=== PATIENT | female | born 1980 | race African-American/Black ===

== ENCOUNTER 2020-04-15 06:01 | Emergency (ER) | payer MEDICAID ==
[~2020-04-15] VITALS: Ht 165.1 cm; Wt 68.0 kg
--- NOTE | 2020-04-15 06:14 | NUR ---
PT CAME TO THE ER C/O GENERALIZED ITCHING AND RASH SINCE TUESDAY BUT WORSE TODAY. DENIES SOB.PT AAOX4, RESPIRATIONS EVEN AND UNLABORED ON RA W/ NAD NOTED. PT CONNECTED TO THE PRESSER MACHINE AND POX.
--- NOTE | 2020-04-15 06:15 | NUR ---
DR HULL AT BEDSIDE FOR EVAL
[2020-04-15] MEDS ORDERED: diphenhydrAMINE HCL 50 MG/ML VIAL ONE (06:25)
[2020-04-15] MEDS ORDERED: FAMOTIDINE/PF INJ 20 MG/2 ML VIAL IV ONE ×2 (06:26→06:30)
[2020-04-15] MEDS ORDERED: predniSONE 20 MG TABLET ONE (06:26)
[2020-04-15] MEDS ORDERED: IV NS 0.9% 1,000 ML BAG IV ONE (06:30)
[2020-04-15] MEDS ORDERED: diphenhydrAMINE HCL 50 MG/ML VIAL IV ONE (06:30)
[2020-04-15] MEDS ORDERED: predniSONE 10 MG TABLET PO ONE (06:30)
--- NOTE | 2020-04-15 07:10 | NUR ---
RECEIVED REPORT FROM HANSEL ECKERT FOR ROBER, PT IS AAOX4, NOT IN RESPIRATORY DISTRESS, V/S STABLE, KEPT RESTED AND COMFORTABLE, AWAITING LAB RESULTS.
[2020-04-15 07:42] LABS: BASOPHILS % (AUTO) 0.3 % (0.0-2.0); EOSINOPHILS % (AUTO) 5.6 % (0.0-6.0); HEMATOCRIT 37 % (33-45); HEMOGLOBIN 11.7 g/dL (11.5-14.8); LYMPHOCYTES # (AUTO) 0.9 /CMM (0.8-4.8); LYMPHOCYTES % (AUTO) 15.8 % (20.0-44.0); MEAN CORPUSCULAR HGB CONC 31 g/dl (31.0-36.0); MEAN CORPUSCULAR VOLUME 73 fL (82-100); MONOCYTES # (AUTO) 0.3 /CMM (0.1-1.30); MONOCYTES % (AUTO) 6.4 % (2.0-12.0); NEUTROPHILS # (AUTO) 3.9 /CMM (1.8-8.9); NEUTROPHILS % (AUTO) 71.9 % (43.0-81.0); PLATELET COUNT (AUTO) 288 /CMM (150-450); RED BLOOD CELL COUNT(AUTO) 5.12 MIL/uL (4.0-5.2); WHITE BLOOD COUNT (AUTO) 5.4 K/uL (4.3-11.0)
[2020-04-15 07:44] LABS: CALCIUM, SERUM 8.6 mg/dL (8.5-10.1); CREATININE 0.8 mg/dL (0.6-1.3)
--- NOTE | 2020-04-15 08:30 | NUR ---
IV removed. Catheter intact and site benign. Pressure and 4x4 applied to site. No bleeding noted. Patient discharged to home in stable condition. Written and verbal after care instructions given. Patient verbalizes understanding of instruction.
[2020-04-15 08:31] VITALS: BP 121/72
== END 2020-04-15 08:31 | disposition home or self-care (01) ==
LOC: ER 06:07
DX: L25.9 Unspecified contact dermatitis, unspecified cause (principal)
CPT/HCPCS: 36415; 80048; 84703; 85025; 96374; 96375; 99284; J1200; J3490; J7030; J7512

== ENCOUNTER 2020-04-16 10:03 | Emergency (ER) | payer MEDICAID ==
[~2020-04-16] VITALS: Ht 165.1 cm; Wt 68.0 kg
[2020-04-16] MEDS ORDERED: FAMOTIDINE/PF INJ 20 MG/2 ML VIAL IV ONE ×2 (10:30→10:33)
[2020-04-16] MEDS ORDERED: IV NS 0.9% 1,000 ML BAG IV ONE (10:30)
[2020-04-16] MEDS ORDERED: diphenhydrAMINE HCL 50 MG/ML VIAL IV ONE (10:30)
[2020-04-16] MEDS ORDERED: methylPREDNISolone SOD SUCC 125 MG/2ML VIAL IV ONE (10:30)
--- NOTE | 2020-04-16 10:30 | NUR ---
WORSENING GENERALIZED ITCHY RASH, SEEN LAST NIGHT FOR SAME. PATIENT A/OX4, BREATHING EVEN AND UNLABORED, NO SOB NOTED, NEEDS ATTENDED, KEPT COMFORTABLE.
[2020-04-16] MEDS ORDERED: diphenhydrAMINE HCL 50 MG/ML VIAL ONE (10:33)
[2020-04-16] MEDS ORDERED: methylPREDNISolone SOD SUCC 125 MG/2ML VIAL ONE (10:33)
--- NOTE | 2020-04-16 12:39 | NUR ---
HIVES IMPROVED. IV removed. Catheter intact and site benign. Pressure and 4x4 applied to site. No bleeding noted.Patient discharged to home in stable condition. Written and verbal after care instructions given. Patient verbalizes understanding of instruction.
[2020-04-16 12:42] VITALS: BP 147/80
== END 2020-04-16 12:43 | disposition home or self-care (01) ==
LOC: ER 10:07
DX: L50.9 Urticaria, unspecified (principal); T78.40XA Allergy, unspecified, initial encounter; Z60.2 Problems related to living alone; X58.XXXA Exposure to other specified factors, initial encounter
CPT/HCPCS: 96374; 96375; 99284; J1200; J2930; J3490; J7030

== ENCOUNTER 2023-04-06 18:19 | Emergency (ER) | payer MEDICAID ==
[~2023-04-06] VITALS: Ht 165.1 cm; Wt 61.2 kg
--- NOTE | 2023-04-06 18:45 | NUR ---
BIBS C/O SOB, "ITCHININESS ALL OVER BODY" 1 HOUR AGO. AMBULATORY, PLACED IN BED, AAOX4, BREATHING EVEN AND UNLABORED SATURATIN G AT 97%RA
--- NOTE | 2023-04-06 18:46 | NUR ---
AT BEDSIDE FOR EVAL
[2023-04-06] MEDS ORDERED: FAMOTIDINE (20 MG) 20 MG TABLET ONE (18:58)
[2023-04-06] MEDS ORDERED: predniSONE 20 MG TABLET ONE (18:58)
[2023-04-06] MEDS ORDERED: diphenhydrAMINE HCL 50 MG/ML VIAL ONE (18:58)
[2023-04-06] MEDS ORDERED: diphenhydrAMINE HCL 50 MG/ML VIAL IM ONE (19:00)
[2023-04-06] MEDS ORDERED: predniSONE 10 MG TABLET PO ONE (19:00)
[2023-04-06] MEDS ORDERED: FAMOTIDINE (20 MG) 20 MG TABLET PO ONE (19:00)
[2023-04-06] MEDS ORDERED: PRED20TA PO (20:43)
[2023-04-06] MEDS ORDERED: FAMO-131 PO (20:43)
[2023-04-06] MEDS ORDERED: EPIN0.3P3 IM (20:43)
[2023-04-06] MEDS ORDERED: DIPH25TA27 PO (20:43)
--- NOTE | 2023-04-06 20:50 | NUR ---
Manny Estrada able to express her concerns. 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 All quetions answered, patient signed discharge paprework.
[2023-04-06 21:05] VITALS: BP 135/80
== END 2023-04-06 21:00 | disposition home or self-care (01) ==
LOC: ER 18:28
DX: L50.0 Allergic urticaria (principal); Z60.2 Problems related to living alone
CPT/HCPCS: 99283; 96372; J1200; J7512